=== PATIENT | male | born 1950 ===

== ENCOUNTER → 2020-02-24 | Outpatient (CLI) | payer MEDICARE, OTHER ==
[~2020-02-24] MED LIST: BUPR100T6 PO; ZOLP10TA PO
--- NOTE | 2020-02-24 09:32 | RAD ---
Examination: ABDOMEN COMPLETE History: Nausea and vomiting, abdominal pain Comparison/Correlation: None Findings: Diffuse fatty infiltration of the liver is present. Portal venous flow is normal. Within the gallbladder, there are a few very small nonmobile nonshadowing echogenic foci which probably represent polyps. No findings definite for cholelithiasis. Common bile duct is unremarkable. No biliary dilatation. Right kidney measures 12.4 cm x 4.2 cm x 4.3 cm. Left kidney measures 12.3 cm x 4.7 cm x 5.6 cm. No hydronephrosis. Right renal scarring is suggested. Renal cortical echotexture is unremarkable otherwise. Proximal pancreas is normal. Distal pancreas is obscured by bowel gas. Spleen is unremarkable. Atheromatous involvement of the abdominal aorta is present. No abdominal aortic aorta is identified. Inferior vena cava is partially visualized and unremarkable. Impression: Fatty infiltration of the liver. Small gallbladder polyps. Electronically signed by: Ruben Tellez MD (02/24/2020 9:29 AM) [id number]
== END | disposition home or self-care (01) ==
LOC: US 08:45
PROVIDERS: ATTEND Internal Medicine Gastroenterology
DX: K82.4 Cholesterolosis of gallbladder (principal); K76.0 Fatty (change of) liver, not elsewhere classified; R11.2 Nausea with vomiting, unspecified; R10.13 Epigastric pain
CPT/HCPCS: 76700

== ENCOUNTER → 2021-09-07 | Day surgery (SDC) | payer MEDICARE ==
[~2021-09-07] MED LIST changes: +IPRATRPIUM/ALBUTEROL 0.5/2.5MG 3 ML NEBU. NEB PRN; +IV RINGERS SOLUTION,LACTATED 1,000 ML IV SCH; +LORA-254 PO; +MIDAZOLAM HCL PF 2 MG/2 ML VIAL. IV ONE; +ONDANSETRON PF 4 MG/2 ML VIAL. IV PRN; +PROPOFOL 10,000 MCG/ML (20ML) VIAL IV ONE
[2021-09-07 14:14] VITALS: BP 123/76
--- NOTE | 2021-09-11 16:15 | PATHOLOGY ---
[facility] Accession Number: [id number] . 01 Material submitted: . stomach - ANTRUM . 01 Clinical history: . DYSPHAGIA, GERD ESOPHAGOGASTRODUODENOSCOPY . 02 Diagnosis: Gastric biopsy, antrum: - Mild reactive gastropathy. (JPM:kaia; 09/11/2021) S 09/11/2021 1342 Local . 02 Comment: Sections of the gastric antral biopsy show congestion, mild foveolar hyperplasia, and minimal chronic inflammation. A properly controlled immunoperoxidase stain for Helicobacter is negative for Helicobacter organisms. The findings are consistent with a mild reactive gastropathy. (JPM:kaia; 09/11/2021) . Special stain performed: Immunoperoxidase stain for Helicobacter on A1 . 02 Electronically signed: . Nuno Murphy MD, Pathologist NPI- [id number] . 01 Gross description: . The specimen is submitted in formalin, labeled "Nikita, Joe, antrum". Received are 2 segments of pale patrick tissue ranging in size from 0.4 to 0.5 cm in maximum dimensions. The specimen is submitted entirely in cassette A1. ([facility]; 09/10/2021) NRI/NRI 09/10/2021 2043 Local . 02 Pathologist provided ICD-10: K31.9 . 02 CPT . 521072, S12830 Specimen Comment: A courtesy copy of this report has been sent to [phone] Specimen Comment: [id number] Specimen Comment: Report sent to / DR CROWDER Specimen Comment: A duplicate report has been generated due to demographic updates. Performed at: [address], [place], [place] [id number] MD Stas Dhillon MD Phone: [phone] Performed at: [address] [id number] MD Nuno Murphy MD Phone: [phone]
== END | disposition home or self-care (01) ==
LOC: SURG 12:29
PROVIDERS: ATTEND Internal Medicine Gastroenterology
DX: R13.10 Dysphagia, unspecified (principal); K21.9 Gastro-esophageal reflux disease without esophagitis; K31.89 Other diseases of stomach and duodenum; K22.70 Barrett's esophagus without dysplasia; F41.9 Anxiety disorder, unspecified; F17.210 Nicotine dependence, cigarettes, uncomplicated; Z79.899 Other long term (current) drug therapy; Z98.890 Other specified postprocedural states; Z20.822 Contact with and (suspected) exposure to COVID-19
CPT/HCPCS: 43239; 43450; C9803; J2704; J7120; U0003; 88305; 88342

== ENCOUNTER → 2021-12-14 | Day surgery (SDC) | payer MEDICARE ==
[~2021-12-14] MED LIST changes: +LIDOCAINE 2% PF 5 ML VIAL. ONE
[2021-12-14 14:30] VITALS: BP 151/90
--- NOTE | 2021-12-18 15:10 | PATHOLOGY ---
[facility] Accession Number: [id number] . 01 Material submitted: . PART A: colon - ASCENDING COLON POLYP X3, 1 SNARE 2 BIOPSY. Modifiers: ascending PART B: colon - TRANSVERSE COLON POLYP, SNARE. Modifiers: transverse PART C: sigmoid colon - SIGMOID COLON POLYP X2, SNARE PART D: colon - DESCENDING COLON POLYP, SNARE. Modifiers: descending PART E: rectum - RECTAL POLYP, SNARE . 01 Clinical history: . FAMILY HX COLON CA COLONOSCOPY . 02 Diagnosis: A. Segments of colonic mucosa, ascending colon polyp x3: - Tubular adenomas. . B. Segments of colonic mucosa, transverse colon polyp: - Tubular adenoma. . C. Segments of colonic mucosa, sigmoid colon polyp x3: - Hyperplastic polyps. . D. Segment of colonic mucosa, descending colon polyp: - Hyperplastic polyp. . E. Segments of colorectal mucosa, rectal polyp: - Serrated polyp/adenoma. . (JPM:roman; 12/18/2021) [facility] 12/18/2021 1200 Local . 02 Comment: There is no high-grade dysplasia or evidence of malignancy. (JPM:roman; 12/18/2021) . 02 Electronically signed: . Nuno Murphy MD, Pathologist NPI- [id number] . 01 Gross description: . A. The specimen is received in formalin, labeled "Joe Shelton, ascending colon polyp x3 - 2 biopsy, 1 snare" and consists of multiple patrick polypoid tissues aggregating 1.6 x 1.0 x 0.4 cm. The largest tissue is bisected. The specimen is filtered and submitted entirely in B1. . B. The specimen is received in formalin, labeled "Joe Shelton, transverse colon polyp-snare" and consists of multiple patrick irregular tissues aggregating 1.1 x 0.8 x 0.2 cm. The largest tissue is trisected. The specimen is submitted entirely in B1. . C. The specimen is received in formalin, labeled "Joe Shelton, sigmoid colon polyp x 3, snare" and consists of 3 brown-patrick polypoid tissues aggregating 0.9 x 0.7 x 0.3 cm. The 2 largest tissues are bisected. The specimen is submitted entirely in C1. . D. The specimen is received in formalin, labeled "Nikita, Joe, descending colon polyp snare" and consists of a brown-patrick polypoid tissue measuring 0.5 x 0.3 x 0.3 cm which is bisected and entirely submitted in D1. . E. The specimen is received in formalin, labeled "Nikita, Joe, rectal polyp snare" and consists of 2 brown-patrick polypoid tissues aggregating 0.9 x 0.7 x 0.3 cm. The smaller tissue is bisected and the larger tissue is trisected. The specimen is submitted entirely in E1.(RESIGHINI; 12/17/2021) DKA/DKA 12/17/2021 [facility] . Pathologist provided ICD-10: D12.2, D12.3, K63.5, D12.8 . 02 CPT . 169390, 595433, 713377, 742020, 763335 Specimen Comment: A courtesy copy of this report has been sent to [phone] Specimen Comment: [id number] Specimen Comment: Report sent to / DR CROWDER Specimen Comment: A duplicate report has been generated due to demographic updates. Performed at: 01 [facility] [address] [facility] [address], [place] [id number] MD Stas Dhillon MD Phone: [phone] Performed at: 02 [facility] [address] [place], [place] [id number] MD Nuno Murphy MD Phone: [phone]
== END | disposition home or self-care (01) ==
LOC: SURG 11:19
PROVIDERS: ATTEND Internal Medicine Gastroenterology
DX: Z12.11 Encounter for screening for malignant neoplasm of colon (principal); K64.8 Other hemorrhoids; D12.2 Benign neoplasm of ascending colon; D12.3 Benign neoplasm of transverse colon; D12.8 Benign neoplasm of rectum; K63.89 Other specified diseases of intestine; I10 Essential (primary) hypertension; K21.9 Gastro-esophageal reflux disease without esophagitis; F41.9 Anxiety disorder, unspecified; Z79.899 Other long term (current) drug therapy
CPT/HCPCS: 45381; 45385; 88305; J2001; J2704; J7120